=== PATIENT | female | born 2000 | race African-American/Black ===

== ENCOUNTER 2018-04-02 14:54 | Inpatient (IN) ==
[2018-04-02] MEDS ORDERED: MEPERIDINE 25 MG/1 ML VIAL IM PRN (15:12)
[2018-04-02] MEDS ORDERED: ONDANSETRON 4 MG/2 ML VIAL IV PRN (15:12)
[2018-04-02] MEDS ORDERED: DINOPROSTONE VAG GEL 10 MG SYRINGE VAG ONE (15:13)
[2018-04-02] MEDS ORDERED: MEPERIDINE 50 MG/1 ML VIAL IV PRN (15:14)
[2018-04-02] MEDS ORDERED: LACTATED RINGERS 1,000 ML IV SCH (15:30)
[2018-04-02 15:31] LABS: Basophils % 0.2 % (0.0-0.8); Eosinophils # 0.1 10*3/uL (0.0-0.87); Eosinophils % 0.7 % (0.00-10.9); Hematocrit 32.2 VOL% (35.7-47.0); Hemoglobin 10.2 GM/DL (12.0-16.0); Immature Granulocytes % 0.6 %; Immature Granulocytes Absolute 0.06 #; Lymphocytes # 1.4 10*3/uL (1.4-4.0); Lymphocytes % 13.7 % (21.3-54.2); Mean Corpuscular HGB Conc 31.7 GM/DL (32-36); Mean Corpuscular Hemoglobin 25 PG (27-34); Mean Corpuscular Volume 80.1 FL (87-102); Mean Platelet Volume 10.2 FL (9.6-12.0); Monocytes # 0.7 10*3/uL (0.11-0.8); Monocytes % 6.9 % (1.7-12.7); Neutrophils # 8.1 10*3/uL (1.4-7.4); Neutrophils % 77.9 % (38.7-73.9); Platelet Count 416 T/CUMM (130-400); Red Blood Count 4.02 MC/CUMM (3.8-5.5); White Blood Count 10.4 T/CUMM (4-12)
[2018-04-02 16:01] LABS: Alanine Aminotransferase 16 U/L (13-56); Albumin 2.6 G/DL (3.4-5.0); Alkaline Phosphatase 184 U/L (45-117); Aspartate Amino Transferase 34 U/L (0-37); Bilirubin,Total < 0.39 MG/DL (0.2-1.0); Blood Urea Nitrogen 3 MG/DL (7-18); Calcium 8.7 MG/DL (8.5-10.1); Glucose 80 MG/DL (74-106); Osmolality,Calculated 270.7 MOS/KG (273-304); Potassium 2.7 MMOL/L (3.5-5.1); Sodium 138 MMOL/L (136-145); Total Protein 7.3 G/DL (6.4-8.3); Uric Acid 3.8 MG/DL (2.6-6.0)
[2018-04-02] MEDS ORDERED: NALOXONE 0.4 MG/ML VIAL IV PRN (20:51)
[2018-04-02] MEDS ORDERED: hydrOXYzine HCL 25 MG/1 ML VIAL IM PRN (20:51)
[2018-04-02] MEDS ORDERED: diphenhydrAMINE 50 MG/1 ML VIAL IV PRN (20:51)
[2018-04-02] MEDS ORDERED: ePHEDrine 50 MG/ML AMP IV PRN (20:51)
[2018-04-02] MEDS ORDERED: FAMOTIDINE 20 MG/2 ML VIAL IV ONE (20:53)
[2018-04-02] MEDS ORDERED: CITRIC ACID/SODIUM CITRATE 30 ML UDCUP PO ONE (20:53)
[2018-04-02] MEDS ORDERED: fentaNYL 2 MCG/ROPIV 0.2% EPID 100 ML EPIDURAL SCH (21:00)
[2018-04-02] MEDS ORDERED: LACTATED RINGERS 1,000 ML IV ONE (21:26)
[2018-04-02 23:41] LABS: Apearance,Urine CLEAR (Clear); Bilirubin,Urine Negative (Negative); Blood, Urine Negative (Negative); Glucose,Urine (UA) Negative (Negative); Ketones,Urine Negative (Negative); Nitrite,Urine Negative (Negative); Protein,Urine Negative; RBC,Urine 1 /HPF (0-4); Urine Color Yellow (Yellow); Urine Specific Gravity 1.003 (1.001-1.035)
[2018-04-03] MEDS ORDERED: miSOPROStol 200 MCG TABLET ONE (00:14)
[2018-04-03] MEDS ORDERED: METHYLERGONOVINE 0.2 MG/1 ML AMP ONE (00:15)
[2018-04-03] MEDS ORDERED: TRANEXAMIC ACID 1,000 MG/10 ML VIAL ONE (00:15)
[2018-04-03 01:13] LABS: Cord Arterial Blood HCO3 25.1 MMOL/L
[2018-04-03 01:15] LABS: Cord Venous Blood HCO3 29.5 MMOL/L; Cord Venous Blood PCO2 48.1 MMHG; Cord Venous Blood PO2 27.9 MMHG
[2018-04-03] MEDS ORDERED: MEASLES/MUMPS/RUBELLA VACCINE 0.5 ML VIAL SUBCUT ONE (01:25)
[2018-04-03] MEDS ORDERED: OXYTOCIN/LR 20 UNIT/1,000 ML BAG IV ONE (01:25)
[2018-04-03] MEDS ORDERED: HYDROCORTISONE 2.5% RECTAL CREAM 30 GM TUBE TOP PRN (01:25)
[2018-04-03] MEDS ORDERED: LANOLIN 50% CREAM 0.3 OZ TUBE TOP PRN (01:25)
[2018-04-03] MEDS ORDERED: WITCH HAZEL PADS 100/JAR TOP PRN (01:25)
[2018-04-03] MEDS ORDERED: ACETAMINOPHEN 325 MG TABLET PO PRN (01:25)
[2018-04-03] MEDS ORDERED: BISACODYL 10 MG SUPP RECTAL PRN (01:25)
[2018-04-03] MEDS ORDERED: ONDANSETRON 4 MG/2 ML VIAL IV PRN (01:25)
[2018-04-03] MEDS ORDERED: RHO(D) IMMUNE GLOBULIN 300 MCG SYRINGE IM ONE (01:25)
[2018-04-03] MEDS ORDERED: DIPH/TET/ACEL PERT BOOSTER VACCINE 0.5 ML VIAL IM ONE (01:25)
[2018-04-03] MEDS ORDERED: BENZOCAINE 20%/MENTHOL 0.5% SPRAY 56 GM CAN TOP PRN (01:25)
[2018-04-03] MEDS ORDERED: OXYTOCIN/LR 20 UNIT/1,000 ML BAG IV SCH (02:00)
[2018-04-03] MEDS: IBUPROFEN 800 MG TABLET PO PRN ×2 (04:00→19:45)
[2018-04-03] MEDS: oxyCODONE/ACETAMINOPHEN 5-325 MG TABLET PO PRN ×2 (04:08→13:59)
[2018-04-03 05:43] LABS: Basophils % 0.2 % (0.0-0.8); Eosinophils % 0.2 % (0.00-10.9); Hematocrit 26.6 VOL% (35.7-47.0); Hemoglobin 8.3 GM/DL (12.0-16.0); Immature Granulocytes % 0.5 %; Immature Granulocytes Absolute 0.09 #; Lymphocytes % 11.2 % (21.3-54.2); Mean Corpuscular HGB Conc 31.2 GM/DL (32-36); Mean Corpuscular Hemoglobin 25 PG (27-34); Mean Corpuscular Volume 80.1 FL (87-102); Mean Platelet Volume 10.2 FL (9.6-12.0); Monocytes # 1.2 10*3/uL (0.11-0.8); Monocytes % 6.6 % (1.7-12.7); Neutrophils # 14.3 10*3/uL (1.4-7.4); Neutrophils % 81.3 % (38.7-73.9); Platelet Count 329 T/CUMM (130-400); Red Blood Count 3.32 MC/CUMM (3.8-5.5); Red Cell Distribution Width 14.1 % (9.3-17.3); White Blood Count 17.7 T/CUMM (4-12)
[2018-04-03 06:03] LABS: Band Neutrophils 1 % (0-10); Eosinophils 1 % (0-10); Hypochromasia 1+; Lymphocytes 14 % (20-55); Ovalocytes Slight; Platelet Estimate Adequate; Segmented Neutrophils 81 % (50-85); Total Cells Counted 100
[2018-04-03] MEDS: FERROUS SULFATE 325 MG TABLET PO SCH ×2 (09:06→19:45)
[2018-04-03] MEDS: MULTIVITAMIN (PRENATAL) TABLET PO SCH (09:06)
[2018-04-03] MEDS: DOCUSATE SODIUM 100 MG CAPSULE PO SCH ×2 (09:07→19:45)
[2018-04-03] MEDS ORDERED: ONDANSETRON 4 MG TABLET PO PRN (15:41)
[2018-04-04] MEDS: POTASSIUM CHLORIDE RIDER 10 MEQ in PREMIX 1 EACH IV PRN ×5 (01:10→06:22)
[2018-04-04 04:37] LABS: Basophils % 0.2 % (0.0-0.8); Eosinophils # 0.1 10*3/uL (0.0-0.87); Eosinophils % 0.9 % (0.00-10.9); Hematocrit 27.8 VOL% (35.7-47.0); Hemoglobin 8.9 GM/DL (12.0-16.0); Immature Granulocytes % 0.9 %; Immature Granulocytes Absolute 0.13 #; Lymphocytes % 20.2 % (21.3-54.2); Mean Corpuscular Hemoglobin 26 PG (27-34); Mean Corpuscular Volume 80.3 FL (87-102); Monocytes % 6.4 % (1.7-12.7); NRBC # 0.02 10*3/uL; Neutrophils # 10.6 10*3/uL (1.4-7.4); Neutrophils % 71.4 % (38.7-73.9); Platelet Count 351 T/CUMM (130-400); Red Blood Count 3.46 MC/CUMM (3.8-5.5); White Blood Count 14.8 T/CUMM (4-12)
[2018-04-04] MEDS: MULTIVITAMIN (PRENATAL) TABLET PO SCH (08:55)
[2018-04-04] MEDS: FERROUS SULFATE 325 MG TABLET PO SCH ×2 (08:55→21:56)
[2018-04-04] MEDS: DOCUSATE SODIUM 100 MG CAPSULE PO SCH ×2 (08:55→21:56)
[2018-04-04] MEDS ORDERED: POTASSIUM CHLORIDE RIDER 10 MEQ in PREMIX 1 EACH IV PRN (10:57)
[2018-04-04] MEDS: POTASSIUM CHLORIDE 20 MEQ TABLET PO SCH ×2 (11:42→22:00)
[2018-04-04] MEDS: oxyCODONE/ACETAMINOPHEN 5-325 MG TABLET PO PRN ×2 (19:32→19:35)
[2018-04-05 08:04] VITALS: BP 148/78
[2018-04-05] MEDS: POTASSIUM CHLORIDE 20 MEQ TABLET PO SCH (09:14)
[2018-04-05] MEDS: MULTIVITAMIN (PRENATAL) TABLET PO SCH (09:14)
[2018-04-05] MEDS: DOCUSATE SODIUM 100 MG CAPSULE PO SCH (09:15)
[2018-04-05] MEDS: FERROUS SULFATE 325 MG TABLET PO SCH (09:16)
== END 2018-04-05 11:05 | disposition home or self-care (01) | DRG 560 ==
LOC: N.LDOUT 14:54 → N.LD 14:57 → N.OB 04-03 04:25
PROVIDERS: ADMIT Obstetrics & Gynecology; ATTEND Obstetrics & Gynecology